=== PATIENT | female | born 1990 | race Caucasian/White ===

== ENCOUNTER 2017-03-24 08:56 | Emergency (ER) | payer OTHER ==
--- NOTE | 2017-03-24 09:00 | PDOC ---
History of Present Illness - General Chief Complaint: Vaginal Sxs Stated Complaint: BURNING AND VAGINAL DISCHARGE WITH ODOR Time Seen by Provider: 03/24/17 08:59 History Source: Patient Exam Limitations: No Limitations - History of Present Illness Travel History: No Initial Comments: 03/24/17 09:15 26y F no pmhx presents with complaint of vaginal itching and whitish chunky discharge for the past 2-3 days. Pt endorses some dysuria, vaginal irritation/ burning. Pt denies any pain. Pt denies any fever/chlls, n/v, back pain, abd pain. Pt endorses being on a short course of abx for dental pain that started on saturday and her vag sypmtoms started shortly afterwards. Pt endorses being in a monogamous relationship and doesnt use barrier protection. PMD: Dr Ojeda Past History - Past Medical History Allergies/Adverse Reactions: Allergies Allergy/AdvReac Type Severity Reaction Status Date / Time No Known Allergies Allergy Verified 03/24/17 08:59 - Reproductive History (#): 3 Para: 1 Cervical CA: No Dysfunctional Uterine Bleeding: No Ectopic : No Endometrial CA: No Polycystic Ovaries: No Therapeutic (s) & number: No Tubal Ligation: No Spontaneous : 2 - Psycho/Social/Smoking Cessation Hx Anxiety: No Suicidal Ideation: No Smoking Status: No Smoking History: Current every day smoker Have you smoked in the past 12 months: No Number of Cigarettes Smoked Daily: 10 'Breaking Loose' booklet given: 07/17/16 Hx Alcohol Use: Yes Drug/Substance Use Hx: No Substance Use Type: Alcohol Review of Systems - Review of Systems Able to Perform ROS?: Yes Comments:: 03/24/17 09:17 Constitutional - no reported Fever, Chills, Abd/GI: no reported abd pain, nausea, vomiting, : +dysuria, discharge no reported frequency Musculskelatal - no reported back pain, skin - no reported bruising, erythema, rash *Physical Exam - Physical Exam Comments: 03/24/17 09:20 GENERAL: The patient is awake, alert, and fully oriented, Nontoxic - in no acute distress. HEAD: Normocephalic, atraumatic. ABDOMEN: Soft, nontender. No CVA tenderness PELVIC: whitish chunky discharge, no CMT, no rashes noted NEUROLOGICAL: No facial assymetry, Normal speech, moving all 4 extrmities spontaneously and symmetrically SKIN: Warm, Dry, normal turgor, Medical Decision Making - Medical Decision Making 03/24/17 09:22 suspect vuvovaginal candidasis pt tried monastat at home 2 days ago w/o improvement will give oral diflucan x 1 awaiting UA/upreg 03/24/17 09:43 UA reviewed not suspicious for UTI not will dc to fu with pmd return precautions were discussed I discussed the physical exam findings, ancillary test results and final diagnoses with the patient. I answered all of the patient's questions. The patient was satisfied with the care received and felt comfortable with the discharge plan and treatment plan. The patient will call their primary care physician within 24 hours to arrange follow-up and will return to the Emergency Department with any new, persistent or worsening symptoms. *DC/Admit/Observation/Transfer Diagnosis at time of Disposition: Vulvovaginal candidiasis - Discharge Dispostion Disposition: HOME Condition at time of disposition: Improved Admit: No - Referrals Referrals: Edgar Perez MD [Staff Physician] - - Patient Instructions Printed Discharge Instructions: DI for Vaginal Yeast Infection Additional Instructions: Return to the emergency department immediately with ANY new, persistent or worsening symptoms. You MUST call and follow up with your doctor tomorrow for further evaluation of your symptoms. Results were discussed with you. Please make sure your doctor reviews the results of your emergency evaluation. A vaginal culture was performed, if it is positive, we will let you know and you and your partner will need to be treated. Print Language: [id number]
[2017-03-24 09:14] VITALS: BP 124/86; PULSE 98; TEMP 99.7; BMI 29.1
[2017-03-24] MEDS ORDERED: FLUCONAZOLE 50 MG TABLET PO ONE (09:14)
[2017-03-24 09:15] LABS: PH,URINE 5.5 (4.5-8); URINE APPEARANCE Cloudy; URINE BILIRUBIN Negative (NEGATIVE); URINE BLOOD 1+ (NEGATIVE); URINE GLUCOSE (UA) Negative (NEGATIVE); URINE KETONE Negative (NEGATIVE); URINE NITRITE Negative (NEGATIVE); URINE PROTEIN Negative (NEGATIVE); URINE UROBILINOGEN 0.2 (0.2-1.0)
[2017-03-24 09:16] LABS: URINE COLOR YELLOW; URINE LEUK ESTERASE TRACE (NEGATIVE)
[2017-03-24] MEDS ORDERED: FLUCONAZOLE 150 MG TABLET PO ONE (09:17)
[2017-03-24 09:33] LABS: URINE BACTERIA FEW /hpf (NEGATIVE); URINE RBC 15-25 /hpf (0-3)
== END 2017-03-24 09:51 | disposition home or self-care (01) ==
LOC: FER 08:56
DX: B37.3 Candidiasis of vulva and vagina (principal); F17.210 Nicotine dependence, cigarettes, uncomplicated
CPT/HCPCS: 36415; 81003; 81015; 84703; 87086; 87491; 87591; 99283-25